=== PATIENT | female | born 1980 | race Caucasian/White ===

== ENCOUNTER 2017-12-11 23:04 | Emergency (ER) | payer OTHER ==
[2017-12-11 23:28] LABS: ADD MAN DIFF? NO
[2017-12-11 23:31] LABS: BASOPHIL # 0.1 10^3/ul (0.0-0.1); BASOPHILS % 0.4 % (0.0-2.0); EOSINOPHILS # 0.3 10^3/ul (0.0-0.5); EOSINOPHILS % 2.3 % (0.0-7.0); HEMATOCRIT 39.8 % (37.0-47.0); HEMOGLOBIN 12.6 g/dl (12.0-16.0); LYMPHOCYTES % 33.3 % (15.0-51.0); MEAN CORPUSCULAR HEMOGLOBIN 25.6 pg (29.0-33.0); MEAN CORPUSCULAR HGB CONC 31.7 g/dl (32.0-37.0); MEAN CORPUSCULAR VOLUME 80.7 fl (82.0-101.0); MEAN PLATELET VOLUME 10.9 fl (7.4-10.4); MONOCYTE # 0.9 10^3/ul (0.3-0.9); MONOCYTES % 5.8 % (0.0-11.0); NEUTROPHIL # 8.7 10^3/ul (1.6-7.5); NEUTROPHILS % 57.9 % (39.0-77.0); PLATELET COUNT 579 10^3/UL (140-415); RED BLOOD COUNT 4.93 10^6/ul (4.20-5.40); RED CELL DISTRIBUTION WIDTH 14.6 % (11.5-14.5)
[2017-12-11] MEDS: ONDANSETRON 4 MG INJ IV (23:37)
[2017-12-11] MEDS: morphine 4 MG/ML VIAL IV (23:37)
[2017-12-11] MEDS: DEXAMETHASONE 10 MG/ML 1 ML INJ IV (23:37)
[2017-12-11] MEDS: SOD CHLORIDE 0.9% 500 ML IV (23:41)
[2017-12-11 23:50] LABS: ANION GAP 16 (8-16); BLOOD UREA NITROGEN 13 mg/dl (7-20); CARBON DIOXIDE 26 mmol/L (21-31); CHLORIDE 107 mmol/L (97-110); CREATININE 0.54 mg/dl (0.44-1.00); GLUCOSE 152 mg/dl (70-220); POTASSIUM 4.5 mmol/L (3.5-5.1); SODIUM 144 mmol/L (135-144)
[2017-12-12 00:06] LABS: TROPONIN-I < 0.012 ng/ml (0.000-0.120)
[2017-12-12 00:27] LABS: INR 0.96; PROTIME 12.9 Sec (11.9-14.9)
[2017-12-12 00:28] LABS: PARTIAL THROMBOPLASTIN TIME 30.5 Sec (25.0-35.0)
[2017-12-12] MEDS: KETOROLAC 30 MG INJ IV (00:45)
[2017-12-12 01:45] LABS: ERYTHROCYTE SEDIMENTATION RATE 31 mm/Hr (0-20)
== END 2017-12-12 02:17 | disposition home or self-care (01) ==
LOC: E/R 23:04
DX: G51.0 Bell's palsy (principal); I10 Essential (primary) hypertension; E11.9 Type 2 diabetes mellitus without complications; E03.9 Hypothyroidism, unspecified; Z79.84 Long term (current) use of oral hypoglycemic drugs
CPT/HCPCS: 36415; 71045; 80048; 81025; 84484; 85025; 85610; 85651; 85730; 96374; 96375; 99285-25

== ENCOUNTER 2018-04-10 05:32 | Day surgery (SDC) | payer OTHER ==
[2018-04-10] MEDS: CEFAZOLIN 2 GM/50 ML (PMX) 50 ML IVPB (06:00)
[2018-04-10] MEDS ORDERED: OXYCODONE/ACETAMINOPHEN (5/325) TAB PO (07:30)
[2018-04-10] MEDS: LACTATED RINGER'S 1,000 ML IV (07:30)
[2018-04-10] MEDS ORDERED: FENTAnyl 50 MCG/ML VIAL IV ×2 (07:30)
[2018-04-10] MEDS ORDERED: DIPHENHYDRAMINE 50 MG INJ IV (07:30)
[2018-04-10] MEDS ORDERED: METOCLOPRAMIDE 10 MG INJ IV (07:30)
[2018-04-10] MEDS ORDERED: ALBUTEROL 0.083% (NEB) 2.5 MG/3 ML AMP HHN (07:30)
[2018-04-10] MEDS ORDERED: HYDROmorphONE 1 MG/5 ML IV SYRINGE IV (07:30)
[2018-04-10] MEDS ORDERED: MEPERIDINE 25 MG INJ IV (07:30)
[2018-04-10] MEDS: HYDROmorphONE 1 MG/5 ML IV SYRINGE IV ×2 (09:27→09:36)
[2018-04-10] MEDS: ONDANSETRON 4 MG INJ IV (09:27)
[2018-04-10] MEDS ORDERED: KETOROLAC 30 MG INJ IV (09:30)
[2018-04-10] MEDS ORDERED: SUCCINYLCHOLINE CHLORIDE 100 MG/5 ML SYG IV (16:40)
[2018-04-10] MEDS ORDERED: PROPOFOL 20 ML (16:40)
[2018-04-10] MEDS ORDERED: ROCURONIUM 50 MG INJ (16:40)
[2018-04-10] MEDS ORDERED: FENTAnyl 50 MCG/ML VIAL (16:40)
[2018-04-10] MEDS ORDERED: CEFAZOLIN 1 GM INJ (16:40)
[2018-04-10] MEDS ORDERED: SUGAMMADEX SODIUM 200 MG/2 ML VIAL IV (16:40)
[2018-04-10] MEDS ORDERED: LIDOCAINE 100 MG SYRINGE (16:40)
== END 2018-04-10 11:20 | disposition home or self-care (01) ==
LOC: SDS 05:32
DX: N93.9 Abnormal uterine and vaginal bleeding, unspecified (principal); D25.9 Leiomyoma of uterus, unspecified; I10 Essential (primary) hypertension; E11.9 Type 2 diabetes mellitus without complications; N84.0 Polyp of corpus uteri; E66.01 Morbid (severe) obesity due to excess calories; Z68.39 Body mass index [BMI] 39.0-39.9, adult
CPT/HCPCS: 58563; 82962; 84703; 88305; 93005